=== PATIENT | female | born 1995 | race Hispanic/Latino ===

== ENCOUNTER 2022-04-15 08:52 | Emergency (ER) | payer OTHER ==
[~2022-04-15] VITALS: Ht 157.5 cm; Wt 100.0 kg
[2022-04-15 09:08] VITALS: BP 120/83
[2022-04-15] MEDS ORDERED: SINGULAIR10 MG PO (09:16)
[2022-04-15] MEDS ORDERED: ALBUTEROL SUL0.083 % IN (09:17)
[2022-04-15] MEDS ORDERED: FLOVENT HF110 MCG/AC (09:17)
[2022-04-15 09:39] LABS: URINE BILIRUBIN - DIPSTICK NEGATIVE (NEGATIVE); URINE BLOOD DIPSTICK TRACE-INTACT (NEGATIVE); URINE COLOR YELLOW; URINE GLUCOSE - DIPSTICK NEGATIVE (NEGATIVE); URINE KETONE NEGATIVE (NEGATIVE); URINE LEUK ESTERASE NEGATIVE (NEGATIVE); URINE PROTEIN - DIPSTICK NEGATIVE (NEG-TRACE); URINE UROBILINOGEN - DIPSTICK 0.2 E.U./dL (0.2)
[2022-04-15 09:43] LABS: URINE NITRITE - DIPSTICK NEGATIVE (Negative)
[2022-04-15 09:45] LABS: BASO% 0.2 % (0-3); EOS% 4.4 % (0-8); HEMATOCRIT 41.9 % (37.0-47.0); HEMOGLOBIN 14.1 g/dl (12.0-16.0); IMMATURE GRANULOCYTES 0.1 % (0.0-5.0); LYMPH% 19.9 % (15-41); MEAN CELL VOLUME 84.5 fL CALC (80.0-100.0); MEAN CORPUSCULAR HGB 28.4 pG CALC (26.0-32.0); MEAN CORPUSCULAR HGB CONC 33.7 g/dL CAL (32.0-36.0); NEUT# 6.38 thou/uL (2.00-7.15); NEUT% 68.4 % (42-76); RED BLOOD COUNT 4.96 mill/uL (4.20-5.60); RED CELL DISTRI WIDTH 12.9 % (11.5-15.5)
[2022-04-15 09:58] LABS: ALBUMIN 4.5 g/dL (3.2-5.0); ALKALINE PHOSPHATASE 126 u/l (38-126); ANION GAP 15 (6-22 (CALC)); BILIRUBIN, TOTAL 0.2 mg/dL (0.02-1.3); BUN 7 mg/dL (7-17); BUN/CREATININE RATIO 14 (12-20 (CALC)); CARBON DIOXIDE 20 mmol/l (22-30); CHLORIDE 105 mmol/l (95-108); CREATININE 0.5 mg/dL (0.5-1.0); GFR FOR AFR.AMER. > 60 ML/MIN (>=60 (CALC)); GFR OTHER RACES > 60 ML/MIN (>=60 (CALC)); LIPASE 37 u/l (23-300); POTASSIUM 3.6 mmol/l (3.5-5.1); SGOT/AST 40 u/l (14-36); SODIUM 136 mmol/l (137-146)
[2022-04-15 10:15] VITALS: BP 131/82
[2022-04-15 10:30] VITALS: BP 122/75
[2022-04-15 11:00] VITALS: BP 119/78
[2022-04-15 11:20] VITALS: BP 119/78
[2022-04-15] MEDS ORDERED: TRAMADOL HYDROC50 M1 PO (11:25)
== END 2022-04-15 11:34 | disposition home or self-care (01) | DRG 760 ==
LOC: ED 08:52
PROVIDERS: Emergency Medicine
DX: N83.202 Unspecified ovarian cyst, left side (principal); D68.2 Hereditary deficiency of other clotting factors; R10.32 Left lower quadrant pain

== ENCOUNTER 2024-02-01 21:41 | Emergency (ER) | payer OTHER ==
[~2024-02-01] VITALS: Ht 157.5 cm; Wt 97.5 kg
[~2024-02-01 21:41] MED LIST: ALBUTEROL SUL0.083 % IN; FLOVENT HF110 MCG/AC; SINGULAIR10 MG PO; TRAMADOL HYDROC50 M1 PO
[2024-02-01 21:55] VITALS: BP 148/92
[2024-02-01] MEDS ORDERED: SODIUM CHLORIDE 0.9% 1,000 ML IV STA (21:57)
[2024-02-01] MEDS ORDERED: MORPHINE SULFATE 4 MG/ML VIAL IV STA ×2 (21:57→23:59)
[2024-02-01] MEDS ORDERED: PROMETHAZINE HCL 25 MG/ML AMP IV ONE (22:00)
[2024-02-01] MEDS ORDERED: ALL DAY10 MG PO (22:07)
[2024-02-01] MEDS ORDERED: VITAMIN D-32000 UNI1 PO (22:07)
[2024-02-01 22:15] LABS: URINE BILIRUBIN - DIPSTICK Negative (NEGATIVE); URINE BLOOD DIPSTICK Trace-intact (NEGATIVE); URINE COLOR Yellow; URINE GLUCOSE - DIPSTICK Negative (NEGATIVE); URINE KETONE Negative (NEGATIVE); URINE LEUK ESTERASE Negative (NEGATIVE); URINE NITRITE - DIPSTICK Negative (Negative); URINE PROTEIN - DIPSTICK Negative (NEG-TRACE); URINE UROBILINOGEN - DIPSTICK 0.2 E.U./dL (0.2)
[2024-02-01 22:16] VITALS: BP 119/73
[2024-02-01 22:25] LABS: BASO% 0.4 % (0-3); EOS% 4.1 % (0-8); HEMATOCRIT 38.8 % (37.0-47.0); HEMOGLOBIN 13.1 g/dl (12.0-16.0); IMMATURE GRANULOCYTES 0.1 % (0.0-5.0); LYMPH% 44.3 % (15-41); MEAN CELL VOLUME 84.9 fL CALC (80.0-100.0); MEAN CORPUSCULAR HGB 28.7 pG CALC (26.0-32.0); MEAN CORPUSCULAR HGB CONC 33.8 g/dL CAL (32.0-36.0); MONO% 7.1 % (2-13); NEUT# 6.25 thou/uL (2.00-7.15); RED BLOOD COUNT 4.57 mill/uL (4.20-5.60); RED CELL DISTRI WIDTH 12.8 % (11.5-15.5)
[2024-02-01 22:38] LABS: ALBUMIN 4.9 g/dL (3.2-5.0); BILIRUBIN, TOTAL 0.3 mg/dL (0.02-1.3); CREATININE 0.6 mg/dL (0.5-1.0); POTASSIUM 3.9 mmol/l (3.5-5.1); TOTAL PROTEIN 8.4 g/dL (6.3-8.2)
[2024-02-02 00:05] VITALS: BP 111/70
[2024-02-02] MEDS ORDERED: LORTAB 5/3255 MG PO (00:37)
[2024-02-02] MEDS ORDERED: HYDROcodone 5 MG/Acetaminophen 325 MG/COMBO PO ONE (00:40)
[2024-02-02 00:57] VITALS: BP 111/70
== END 2024-02-02 00:57 | disposition home or self-care (01) | DRG 392 ==
LOC: ED 21:41
PROVIDERS: Family Medicine
DX: R10.11 Right upper quadrant pain (principal); D68.2 Hereditary deficiency of other clotting factors
CPT/HCPCS: Q9967